=== PATIENT | male | born 1995 | race Caucasian/White ===

== ENCOUNTER 2018-07-16 04:29 | Emergency (ER) | payer SELFPAY ==
[~2018-07-16] VITALS: Ht 172.7 cm; Wt 77.1 kg
--- NOTE | 2018-07-16 04:29 | NUR ---
PT BIB [facility], PREBOOK. TAKEN TO CHAIR E
[2018-07-16 04:30] VITALS: BP 139/70
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
--- NOTE | 2018-07-16 04:45 | NUR ---
Patient discharged with v/s stable. Written and verbal after care instructions given and explained. Patient verbalized understanding. Ambulatory with steady gait. All questions addressed prior to discharge. Advised to follow up with PMD.
== END 2018-07-16 04:45 ==
LOC: MED 04:29
DX: Z02.89 Encounter for other administrative examinations (principal); V89.2XXA Person injured in unspecified motor-vehicle accident, traffic, initial encounter; Y93.89 Activity, other specified; Y92.89 Other specified places as the place of occurrence of the external cause; Y99.8 Other external cause status
CPT/HCPCS: 99283